=== PATIENT | female | born 1950 | race Caucasian/White ===

== ENCOUNTER → 2016-06-21 | Outpatient (CLI) | payer OTHER | LOC: FIMAGING 13:13 | DX: Z12.31 Encounter for screening mammogram for malignant neoplasm of breast (principal) | CPT/HCPCS: G0202 ==

== ENCOUNTER → 2017-03-27 | Outpatient (CLI) | payer SELFPAY | LOC: FIMAGING 08:52 | PROVIDERS: ATTEND Internal Medicine | DX: R94.6 Abnormal results of thyroid function studies (principal) | CPT/HCPCS: A9516 ==

== ENCOUNTER → 2017-07-29 | Outpatient (CLI) | payer OTHER | LOC: FIMAGING 13:11 | PROVIDERS: ATTEND Internal Medicine | DX: Z12.31 Encounter for screening mammogram for malignant neoplasm of breast (principal) ==

== ENCOUNTER 2017-11-18 08:10 | Emergency (ER) | payer OTHER ==
[2017-11-18] MEDS ORDERED: HYDROmorphONE/DILAUDID 2 MG/ML INJ IVP ONE ×2 (08:29→10:00)
[2017-11-18] MEDS ORDERED: ONDANSETRON 4 MG/2 ML VIAL IVP ONE (08:29)
[2017-11-18] MEDS ORDERED: NS 1,000 ML IV ONE (08:29)
--- NOTE | 2017-11-18 08:32 | EDPHY ---
H & P Stated Complaint: nausea for 3 weeks, abdominal pain starting today at 0400 Time Seen by Provider: 11/18/17 08:22 HPI/ROS: CHIEF COMPLAINT: Abdominal pain HISTORY OF PRESENT ILLNESS: The patient is a 67-year-old female who comes to the emergency department complaining of lower abdominal pain that began at 4:00 a.m.. She states she has had very mild nausea for the last few weeks but felt well yesterday. Today she woke up in pain. She has not had a fever but states that she had chills. She has never had pain like this before. No history of abdominal surgery. She states that her stool is slightly loose but not diarrhea and not bloody. No vomiting. No chest pain or shortness of breath. No back or flank pain. Pain is primarily in her lower abdomen and on the left side more than the right. No vaginal bleeding or discharge. No urinary complaints. REVIEW OF SYSTEMS: Constitutional: denies: chills, fever, recent illness, recent injury EENTM: denies: blurred vision, double vision, nose congestion Respiratory: denies: cough, shortness of breath Cardiac: denies: chest pain, irregular heart rate, lightheadedness, palpitations Gastrointestinal/Abdominal: See HPI Genitourinary: denies: dysuria, frequency, hematuria, pain Musculoskeletal: denies: joint pain, muscle pain Skin: denies: lesions, rash, jaundice, bruising Neurological: denies: headache, numbness, paresthesia, tingling, dizziness, weakness Hematologic/Lymphatic: denies: blood clots, easy bleeding, easy bruising Immunologic/allergic: denies: HIV/AIDS, transplant EXAM: GENERAL: Well-appearing, obese and in no acute distress. HEAD: Atraumatic, normocephalic. EYES: Pupils equal round and reactive to light, extraocular movements intact, sclera anicteric, conjunctiva are normal. ENT: TMs normal, nares patent, oropharynx clear without exudates. Moist mucous membranes. NECK: Normal range of motion, supple without lymphadenopathy or JVD. LUNGS: Breath sounds clear to auscultation bilaterally and equal. No wheezes rales or rhonchi. HEART: Regular rate and rhythm without murmurs, rubs or gallops. ABDOMEN: Large, Soft, nontender, normoactive bowel sounds. No guarding, no rebound. No masses appreciated. BACK: No CVA tenderness, no spinal tenderness, step-offs or deformities EXTREMITIES: Normal range of motion, no pitting or edema. No clubbing or cyanosis. NEUROLOGICAL: Cranial nerves II through XII grossly intact. Normal speech, normal gait. 5/5 strength, normal movement in all extremities, normal sensation PSYCH: Normal mood, normal affect. SKIN: Warm, dry, normal turgor, no visible rashes or lesions. Source: Patient Exam Limitations: No limitations - Personal History Current Tetanus/Diphtheria Vaccine: Yes Current Tetanus Diphtheria and Acellular Pertussis (TDAP): Yes Tetanus Vaccine Date: < 10 years - Medical/Surgical History Hx Asthma: No Hx Chronic Respiratory Disease: No Hx Diabetes: Yes Hx Cardiac Disease: Yes Hx Renal Disease: No Hx Cirrhosis: No Hx Alcoholism: No Hx HIV/AIDS: No Hx Splenectomy or Spleen Trauma: No Other PMH: HTN, hyperlipidemia, afib, DM, TIA, hyperthyroid - Family History Significant Family History: No pertinent family hx - Social History Smoking Status: Never smoked Alcohol Use: None Drug Use: None Constitutional: Initial Vital Signs Temperature (C) 36.3 C 11/18/17 08:16 Heart Rate 71 11/18/17 08:16 Respiratory Rate 18 11/18/17 08:16 Blood Pressure 141/88 H 11/18/17 08:16 O2 Sat (%) 96 11/18/17 08:16 O2 Delivery Mode Room Air Allergies/Adverse Reactions: No Known Allergies Allergy (Verified 11/18/17 08:14) Home Medications: Medication Instructions Recorded METOPROLOL TARTRATE PO DAILY 08/17/10 Hydrocodone/APAP 5/325 [Geary 1 - 2 tab PO Q4H PRN #10 tab 11/18/17 5/325 (RX)] Ondansetron Odt [Zofran Odt 4 mg 4 mg PO Q4 PRN #20 tab 11/18/17 (RX)] Statin 11/18/17 levOFLOXACIN [levAQUIN] 750 mg PO DAILY #10 tab 11/18/17 metFORMIN HCL 11/18/17 metroNIDAZOLE [Flagyl] 500 mg PO BID #20 tab 11/18/17 Medical Decision Making - Diagnostics Imaging: Discussed imaging studies w/ automatic buffer Radiologist ED Course/Re-evaluation: 10:00 a.m. We discussed the CT and lab results. The patient would prefer going home to admission. I will start her antibiotics here in the discussed taking them at home as well as pain control and nausea medications. We discussed indications for returning. Differential Diagnosis: Partial list of the Differential diagnosis considered include but were not limited to; diverticulitis, kidney stone, urinary tract infection and although unlikely based on the history and physical exam, I also considered aneurysm, dissection. I discussed these differential diagnoses and the plan with the patient as well as the usual and expected course. The patient understands that the diagnosis is provisional and that in medicine we are not always correct and that further workup is often warranted. Usual and customary warnings were given. All of the patient's questions were answered. The patient was instructed to return to the emergency department should the symptoms at all worsen or return, otherwise to followup with the physician as we discussed. - Data Points Laboratory Results: Laboratory Results 11/18/17 08:35 11/18/17 08:35 Medications Given: Discontinued Medications Hydromorphone HCl (Dilaudid) 0.5 mg IVP EDNOW ONE Stop: 11/18/17 08:30 Last Admin: 11/18/17 08:42 Dose: 0.5 mg Hydromorphone HCl (Dilaudid) 0.5 mg IVP EDNOW ONE Stop: 11/18/17 10:01 Last Admin: 11/18/17 10:27 Dose: 0.5 mg Sodium Chloride (Ns) 1,000 mls @ 0 mls/hr IV EDNOW ONE; Wide Open PRN Reason: Protocol Stop: 11/18/17 08:30 Last Admin: 11/18/17 08:43 Dose: 1,000 mls Levofloxacin/Dextrose (Levaquin 750 Mg (Premix)) 150 mls @ 100 mls/hr IV EDNOW ONE PRN Reason: Protocol Stop: 11/18/17 11:28 Last Admin: 11/18/17 10:20 Dose: 150 mls Metronidazole/Sodium Chloride (Flagyl 500 Mg (Premix)) 100 mls @ 100 mls/hr IV EDNOW ONE PRN Reason: Protocol Stop: 11/18/17 10:58 Last Admin: 11/18/17 12:00 Dose: 100 mls Ondansetron HCl (Zofran) 4 mg IVP EDNOW ONE Stop: 11/18/17 08:30 Last Admin: 11/18/17 08:42 Dose: 4 mg Departure - Departure Disposition: Home, Routine, Self-Care Clinical Impression: Diverticulitis large intestine Qualifiers: Diverticulitis bleeding: without bleeding Diverticulitis complication: without perforation or abscess Qualified Code(s): K57.32 - Diverticulitis of large intestine without perforation or abscess without bleeding Condition: Fair Instructions: Hydrocodone/Acetaminophen (By mouth), Metronidazole (By mouth), Ondansetron (By mouth), Levofloxacin (By mouth), Diverticulitis (ED) Referrals: Lenora Davis MD [Primary Care Provider] - As per Instructions Saul Chase MD [Medical Doctor] - As per Instructions Prescriptions: Hydrocodone/APAP 5/325 [Geary 5/325 (RX)] 1 - 2 tab PO Q4H PRN #10 tab PRN Reason: Pain, Moderate levOFLOXACIN [levAQUIN] 750 mg PO DAILY #10 tab metroNIDAZOLE [Flagyl] 500 mg PO BID #20 tab Ondansetron Odt [Zofran Odt 4 mg (RX)] 4 mg PO Q4 PRN #20 tab PRN Reason: Nausea & Vomiting
[2017-11-18 08:46] LABS: PLATELET COUNT 272 10^3/uL (150-400)
[2017-11-18] MEDS ORDERED: IOPAMIDOL (ISOVUE-300) 100 ML BTL ONE (09:14)
[2017-11-18 13:11] VITALS: BP 134/69
== END 2017-11-18 13:10 | disposition home or self-care (01) ==
LOC: SUPCPDRO 08:10
DX: K57.32 Diverticulitis of large intestine without perforation or abscess without bleeding (principal); E86.9 Volume depletion, unspecified; I10 Essential (primary) hypertension; E11.9 Type 2 diabetes mellitus without complications; Z79.84 Long term (current) use of oral hypoglycemic drugs
CPT/HCPCS: 74177; 96361; 96365; 96367; 96375; 96376; 99285; J1170; J1956; J2405; Q9967

== ENCOUNTER 2018-05-02 21:49 | Inpatient (IN) | payer OTHER ==
--- NOTE | 2018-05-02 21:56 | EDPHY ---
H & P Time Seen by Provider: 05/02/18 21:56 HPI/ROS: HPI CHIEF COMPLAINT: Lower quadrant abdominal pain getting worse. HISTORY OF PRESENT ILLNESS: 67-year-old female presents emergency room left lower quadrant abdominal pain. This been a present issue for the past 10 days lays visualize diagnosed with diverticulitis by her primary care doctor and has been on Augmentin. She presents emergency room with worsening left lower quadrant abdominal pain over the last 24 hr. Decreased appetite but no vomiting no diarrhea no bloody stools. Denies fever denies chest pain or his of breath. Past Medical History: Diabetes and diverticulitis Past Surgical History: No abdominal surgery Social History: Denies drugs, tobacco. Or alcohol. Family History: Noncontributory ROS REVIEW OF SYSTEMS: 10 Systems were reviewed and negative with the exception of the elements mentioned in the history of present illness. Exam Constitutional triage nursing summary reviewed, vital signs reviewed, awake/ alert. Eyes normal conjunctivae and sclera, EOMI, PERRLA. HENT normal inspection, atraumatic, moist mucus membranes, no epistaxis, neck supple/ no meningismus, no raccoon eyes. Respiratory clear to auscultation bilaterally, normal breath sounds, no respiratory distress, no wheezing. Cardiovascular rate normal, regular rhythm, no murmur, no edema, distal pulses normal. Gastrointestinal mild tender palpation left lower quadrant, no rebound, no guarding, normal bowel sounds, no distension, no pulsatile mass. Genitourinary no CVA tenderness. Musculoskeletal no midline vertebral tenderness, full range of motion, no calf swelling, no tenderness of extremities, no meningismus, good pulses, neurovascularly intact. Skin pink, warm, & dry, no rash, skin atraumatic. Neurologic awake, alert and oriented x 3, AAOx3, moves all 4 extremities equally, motor intact, sensory intact, CN II-XII intact, normal cerebellar, normal vision, normal speech. Psychiatric normal mood/affect. Heme/Lymph/Immune no lymphadenopathy. Differential Diagnosis: Differential diagnosis includes but is not limited to and in no particular order: Bowel obstruction, appendicitis, gallbladder disease, diverticulitis, colitis, enteritis, perforated viscus, gastritis, GERD , esophagitis, urinary tract infection, pyelonephritis, kidney stones Medical Decision Making: Plan for this patient IV establishment IV fluid bolus CT scan abdomen pelvis with IV contrast, basic blood work. Re-evaluation: CT scan abdomen pelvis with IV contrast shows acute diverticulitis. No perforation or abscess. 2335: LONG DISCUSSION WITH THE PATIENT SHE WOULD AGREE FOR ADMISSION. Plan for admission for acute diverticulitis. IV Cipro Flagyl ordered. Admitted to the medicine service Dr. Gemini Spencer. Patient has uncomplicated diverticulitis on CT scan has been on Augmentin for the last. Plan for admission. Source: Patient - Personal History Tetanus Vaccine Date: < 10 years - Medical/Surgical History Hx Asthma: No Hx Chronic Respiratory Disease: No Hx Diabetes: Yes Hx Cardiac Disease: Yes Hx Renal Disease: No Hx Cirrhosis: No Hx Alcoholism: No Hx HIV/AIDS: No Hx Splenectomy or Spleen Trauma: No Other PMH: HTN, hyperlipidemia, afib, DM, TIA, hyperthyroid - Social History Smoking Status: Never smoked Constitutional: Initial Vital Signs Temperature (C) 37.0 C 05/02/18 21:56 Heart Rate 76 05/02/18 21:56 Respiratory Rate 17 05/02/18 21:56 Blood Pressure 152/85 H 05/02/18 21:56 O2 Sat (%) 95 05/02/18 21:56 O2 Delivery Mode Room Air Allergies/Adverse Reactions: fluoxetine Allergy (Verified 05/03/18 10:56) metaxalone [From Skelaxin] Allergy (Verified 05/03/18 10:56) niacin Allergy (Verified 05/03/18 10:54) Home Medications: Medication Instructions Recorded Metoprolol Succinate [Toprol Xl] 25 mg PO DAILY 08/17/10 Atorvastatin Calcium [Lipitor] 40 mg PO DAILY 11/18/17 metFORMIN HCL [Glucophage 500 mg 1,000 mg PO BIDMEAL 11/18/17 (*)] Aspirin [Aspirin 81mg (*)] 81 mg PO DAILY 05/03/18 Cholecalciferol Vit D3 [Vitamin D3 2,000 units PO DAILY 05/03/18 2000 units tab (OTC)] Herbals/Supplements -Info Only 1 ea PO DAILY 05/03/18 LORazepam [Ativan (*)] 0.5 mg PO HS PRN 05/03/18 Losartan Potassium [Cozaar 50 mg 100 mg PO DAILY 05/03/18 (*)] Magnesium Oxide [Magnesium Oxide 400 mg PO DAILY 05/03/18 400 mg (*)] [place]-3 Fatty Acids [Fish Oil 1000 2,000 mg PO DAILY 05/03/18 mg (*)] Ondansetron Odt [Zofran Odt 4 mg 4 mg PO BID PRN 05/03/18 (RX)] buPROPion XL [Wellbutrin Xl] 150 mg PO DAILY 05/03/18 Medical Decision Making - Data Points Laboratory Results: Laboratory Results 05/02/18 22:07 05/02/18 22:07 Medications Given: Atorvastatin Calcium (Lipitor) 40 mg PO DAILY [facility] Stop: 10/30/18 20:59 Last Admin: 05/03/18 20:16 Dose: 40 mg Bupropion HCl (Wellbutrin Xl) 150 mg PO HS [facility] Stop: 10/30/18 11:14 Last Admin: 05/03/18 20:17 Dose: Not Given Cholecalciferol (Vitamin D) 2,000 units PO DAILY [facility] Stop: 10/30/18 11:14 Last Admin: 05/03/18 11:56 Dose: 2,000 units Ciprofloxacin/Dextrose (Cipro 400 Mg (Premix)) 200 mls @ 200 mls/hr IV Q12H [facility] PRN Reason: Protocol Stop: 06/02/18 00:59 Last Admin: 05/04/18 01:12 Dose: 200 mls Metronidazole/Sodium Chloride (Flagyl 500 Mg (Premix)) 100 mls @ 100 mls/hr IV Q6HRS [facility] PRN Reason: Protocol Stop: 06/02/18 05:59 Last Admin: 05/03/18 23:38 Dose: 100 mls Losartan Potassium (Cozaar) 100 mg PO DAILY [facility] Stop: 10/30/18 11:14 Last Admin: 05/03/18 11:56 Dose: Not Given Metformin HCl (Glucophage) 1,000 mg PO BIDMEAL [facility] Stop: 10/30/18 17:59 Last Admin: 05/03/18 17:30 Dose: 1,000 mg Metoprolol Succinate (Toprol Xl) 25 mg PO DAILY [facility] Stop: 10/30/18 11:14 Last Admin: 05/03/18 11:57 Dose: Not Given [id number] Ethyl Esters (Fish Oil) 2,000 mg PO DAILY [facility] Stop: 10/30/18 11:14 Last Admin: 05/03/18 11:58 Dose: 2,000 mg Senna/Docusate Sodium (Senokot-S) 1 - 2 tab PO BID [facility] PRN Reason: Protocol Stop: 10/30/18 08:59 Last Admin: 05/03/18 20:16 Dose: 2 tab Discontinued Medications Bupropion HCl (Wellbutrin Xl) 150 mg PO DAILY [facility] Stop: 10/30/18 11:14 Last Admin: 05/03/18 11:15 Dose: Not Given Hydromorphone HCl (Dilaudid) 0.5 mg IVP EDNOW ONE Stop: 05/02/18 22:12 Last Admin: 05/02/18 22:19 Dose: Not Given Sodium Chloride (Ns) 1,000 mls @ 0 mls/hr IV EDNOW ONE; Wide Open PRN Reason: Protocol Stop: 05/02/18 22:06 Last Admin: 05/02/18 22:11 Dose: 1,000 mls Ciprofloxacin/Dextrose (Cipro 200 Mg (Premix)) 100 mls @ 100 mls/hr IV EDNOW ONE PRN Reason: Protocol Stop: 05/03/18 00:35 Last Admin: 05/03/18 01:29 Dose: Not Given Metronidazole/Sodium Chloride (Flagyl 500 Mg (Premix)) 100 mls @ 100 mls/hr IV EDNOW ONE PRN Reason: Protocol Stop: 05/03/18 00:35 Last Admin: 05/02/18 23:52 Dose: 100 mls Sodium Chloride (Ns) 1,000 mls @ 0 mls/hr IV ONCE ONE PRN Reason: Wide Open Stop: 05/02/18 23:42 Last Admin: 05/02/18 23:53 Dose: 1,000 mls Promethazine HCl (Phenergan) 6.25 mg IVP ONCE ONE Stop: 05/02/18 22:12 Last Admin: 05/02/18 22:19 Dose: Not Given Departure - Departure Disposition: [facility] Acute Clinical Impression: Diverticulitis large intestine Qualifiers: Diverticulitis bleeding: without bleeding Diverticulitis complication: without perforation or abscess Qualified Code(s): K57.32 - Diverticulitis of large intestine without perforation or abscess without bleeding Condition: Fair
[2018-05-02] MEDS ORDERED: NS 1,000 ML IV ONE ×2 (22:05→23:41)
[2018-05-02] MEDS ORDERED: HYDROmorphONE/DILAUDID 2 MG/ML INJ IVP ONE (22:11)
[2018-05-02] MEDS ORDERED: PROMETHAZINE HCL 25 MG/ML INJ IVP ONE (22:11)
[2018-05-02 22:20] LABS: PLATELET COUNT 319 10^3/uL (150-400)
[2018-05-02 22:29] LABS: INR 0.97 (0.83-1.16); PROTIME(PATIENT) 13.1 SEC (12.0-15.0)
[2018-05-02] MEDS ORDERED: IOPAMIDOL (ISOVUE-300) 100 ML BTL ONE (22:40)
[2018-05-03] MEDS ORDERED: BISACODYL 10 MG SUPP PR PRN (00:55)
[2018-05-03] MEDS ORDERED: ONDANSETRON 4 MG/2 ML VIAL IVP PRN (00:55)
[2018-05-03] MEDS ORDERED: POLYETHYLENE GLYCOL 3350 17 GM PKT PO PRN (00:55)
[2018-05-03] MEDS ORDERED: LACTULOSE 20 GM/30 ML UDCUP PO PRN (00:55)
[2018-05-03] MEDS ORDERED: ONDANSETRON DISINTEGRATING 4 MG TAB PO PRN (00:55)
[2018-05-03] MEDS ORDERED: ACETAMINOPHEN 325 MG TAB PO PRN (00:55)
[2018-05-03] MEDS ORDERED: MAGNESIUM HYDROXIDE 30 ML UDCUP PO PRN (00:55)
--- NOTE | 2018-05-03 01:13 | SOAPPROG ---
SOAP Progress Note Assessment/Plan: Assessment: Plan: 05/03/18 01:17 Diverticulitis: not doing well on Augmentin as outpatient, with ongoing pain. Afebrile, WBC with minimal elevation. Will switch to IV antibiotics, Cipro and flagyl. Hopefully she with feel better soon and can be switched to oral regimen. I don't see need for surgical consult at this point. Diabetes mellitus type 2: on metformin and will continue Hypertension: on losartan, will continue Hx atrial fibrillation: no recurrence for many years. Continue metoprolol CAD: continue fish oil, aspirin, CoQ10, aged garlic Hyperlipidemia: on atorvastatin Depression/Anxiety: on Wellbutrin XL DVT prophylaxis: sequential compression stockings Dispo: admit to obs for now, though may need to change to inpatient status Subjective: 67 yo woman with hx of diverticulitis initially was seen in our office on . Prior to that visit, she'd been having nausea, decreased appetite, and lower abdominal pain. Abdominal pain worsened and she came to the office. CT abdomen and pelvis with contrast showed mild diverticulitis in two spots in the sigmoid colon. She was started on Augmentin 500mg TID. She subsequently went to [place] for the holidays. She modified her diet while there but didn't improve significantly. Yesterday her sx became worse and she and her drove back to [place] today and presented to the ED due to worsening pain. In the ED, CT abd/pelvis again shows diverticulitis without significant worsening from her previous CT, based on the report. No abscess, free air. WBC is minimally elevated. She is afebrile, BP stable. She is being admitted as she appears to have failed outpatient rx. Of note, she has had a surgical consult with Dr. Mathur in October 2017 following her previous episode of diverticulitis. Objective: Vital Signs Temp Pulse Resp BP Pulse Ox 36.4 C 68 18 135/79 H 96 05/03/18 00:29 05/03/18 00:29 05/03/18 00:29 05/03/18 00:29 05/03/18 00:29 05/01/18 05/02/18 05/03/18 05:59 05:59 05:59 Intake Total 1000 Balance 1000 PT 13.1 SEC (12.0-15.0) 05/02/18 22:07 INR 0.97 (0.83-1.16) 05/02/18 22:07 General: alert, oriented, well-appearing, mild discomfort HEENT: NC, AT. PERRL, EOMI Neck: no masses, adenopathy. No thyromegaly, thyroid tenderness Lungs: clear bilaterally. No wheezes, rales Cardiovascular: RRR no murmur Abdomen: positive bowel sounds, soft. Mild L sided tenderness. No hepatosplenomegaly, masses Extremities: no cyanosis, edema Skin: no rashes Musculoskeletal: no swelling, erythema Neurologic: alert, Mateo Psychiatric: pleasant, normal affect, no agitation ICD10 Worksheet Patient Problems: Problems Problem Status Onset Diverticulitis large intestine Acute
[2018-05-03] MEDS: CIPROFLOXACIN 200 MG/DEXTROSE 100 ML IV ONE ×2 (01:22→01:29)
[2018-05-03] MEDS: CIPROFLOXACIN 400 MG/DEXTROSE 200 ML IV SCH ×2 (01:29→13:01)
--- NOTE | 2018-05-03 03:36 | GHP ---
DATE OF ADMISSION: 05/02/2018 HISTORY OF PRESENT ILLNESS: The patient is a 67-year-old woman with a history of diabetes as well as diverticulitis who was initially seen in our office on . Prior to that visit, she had been having nausea, decreased appetite, and lower abdominal pain. Her abdominal pain worsened and she came into the office on [place]. CT of the abdomen and pelvis with contrast showed diverticulitis in 2 spots in the sigmoid colon, but there was no evidence of abscess or perforation. She was started on Augmentin 500 mg t.i.d. She subsequently went to [place] for the holidays. She modified her diet some while she was there, but did not improve significantly. Yesterday, her symptoms became much worse and she and her drove back to [place] today and presented to the emergency department due to worsening pain. In the emergency department, CT of the abdomen and pelvis again showed diverticulitis without significant worsening from her previous CT based on the report. There was no direct comparison. There was no abscess or free air. White blood cell count is minimally elevated. She is afebrile with a stable blood pressure. She is being admitted as she appears to have failed outpatient Rx. Of note, she has had a surgical consult in the past with Dr. Mathur in October 2017 following her previous episode of diverticulitis. PAST MEDICAL HISTORY: Melanoma of the right lower abdomen, anxiety, depression , asthma, isolated paroxysmal atrial fibrillation, hypertension, hyperlipidemia , type 2 diabetes, hyperthyroidism, hypothyroidism, coronary artery disease, diverticulitis. MEDICATIONS: Zofran 4 mg twice daily as needed for nausea, metoprolol succinate ER 25 mg daily, atorvastatin 40 mg daily, losartan 100 mg daily, metformin 1000 mg b.i.d., fish oil 1200 mg 2 caps daily, aspirin 81 mg daily, vitamin D 2000 international units daily, Co Q10 200 mg daily, Protandim 1 tab daily, magnesium 500 mg daily, Probiotic daily, Turmeric 500 mg once daily, aged garlic extract 600 mg twice a day, Lorazepam 0.5 mg at bedtime as needed, Wellbutrin XL 150 mg daily. ALLERGIES: Niacin, metaxalone, and fluoxetine. SURGICAL HISTORY: Breast biopsy 2005, bilateral carpal tunnel surgery 1996, tailbone cyst 1969, right knee arthroscopy. FAMILY HISTORY: Her father of lung cancer and had a history of colon polyps. Her mother has hypertension and atrial fibrillation. She has a brother who is in poor health with alcohol problems, a sister with paroxysmal atrial fibrillation, diabetes, and obesity. SOCIAL HISTORY: The patient is a nonsmoker and nondrinker. She has 3 children and 6 grandchildren. She exercises regularly. She is . REVIEW OF SYSTEMS: GENERAL: No fever or chills. She does note night sweats on occasion. HEENT: No rhinitis or sore throat. RESPIRATORY: No cough, shortness of breath, or wheeze. CARDIOVASCULAR: No chest pain or irregular rhythms. GI: Nausea and abdominal pain as noted per HPI. No diarrhea or blood in stools. No vomiting. Appetite is diminished. : No dysuria or hematuria. NEUROLOGIC: No headache. No lethargy or mental status change. PHYSICAL EXAMINATION: VITAL SIGNS: Blood pressure 135/79, heart rate 68, respiratory rate 18, O2 saturation 96% on room air, temperature 36.4. GENERAL: She is alert and oriented, well-appearing, in mild discomfort. HEENT: Normocephalic, atraumatic. Pupils are equal, round, and reactive to light. Extraocular movements are intact. NECK: Supple without masses or adenopathy. No thyromegaly or thyroid tenderness. LUNGS: Clear bilaterally. No wheezes or rales. CARDIOVASCULAR: Regular rate and rhythm without murmur. ABDOMEN: Normal bowel sounds and soft. Mild left-sided tenderness. No hepatosplenomegaly or masses. EXTREMITIES: Without cyanosis or edema. SKIN: No rashes. MUSCULOSKELETAL: No swelling or erythema. NEUROLOGIC: She is alert and oriented moving all extremities. PSYCHIATRIC: Pleasant, normal affect. No agitation. ASSESSMENT AND PLAN: 1. Diverticulitis, not doing well on Augmentin as outpatient with ongoing pain. She is afebrile and white blood cell count shows only minimal elevation. Will switch to IV antibiotics Cipro and Flagyl. Hopefully, she will feel better soon and can be switched to oral regimen. I do not see a need for surgical consult at this point. 2. Diabetes mellitus type 2, on metformin and will continue. 3. Hypertension, on losartan and will continue. 4. History of atrial fibrillation. No recurrence for many years. Continue metoprolol. 5. Coronary artery disease. Continue fish oil, aspirin, Co Q10, and aged garlic. 6. Hyperlipidemia, on atorvastatin. 7. Depression and anxiety, on Wellbutrin XL. 8. Deep venous thrombosis prophylaxis. Sequential compression stockings. DISPOSITION: Will admit to OBs for now, although may need to change to inpatient status. /[id number]/MODL MTDD
[2018-05-03 05:20] LABS: PLATELET COUNT 233 10^3/uL (150-400)
[2018-05-03] MEDS: SENNOSIDES/DOCUSATE SODIUM TAB PO SCH ×2 (10:29→20:16)
[2018-05-03] MEDS ORDERED: LORazepam 0.5 MG TAB PO PRN (11:04)
--- NOTE | 2018-05-03 11:14 | ASMTCMCOM ---
CM Note CM Note Notes: Pt in for acute diverticulitis, on IV antibiotics now. Pt resides with spouse. No therapies ordered. Pt likely will be able to switch to PO antibiotics. CM to follow for d/c needs. Date Signed: 05/03/2018 11:13 AM Electronically Signed By:SCOTT Berumen
[2018-05-03] MEDS: buPROPion XL 150 MG TAB PO SCH ×2 (11:15→11:56)
--- NOTE | 2018-05-03 11:24 | SOAPPROG ---
SOAP Progress Note Assessment/Plan: Assessment: Plan: 05/03/18 01:17 Diverticulitis: not doing well on Augmentin as outpatient, with ongoing pain. Afebrile, WBC with minimal elevation. Will switch to IV antibiotics, Cipro and flagyl. Hopefully she with feel better soon and can be switched to oral regimen. I don't see need for surgical consult at this point. Diabetes mellitus type 2: on metformin and will continue Hypertension: on losartan, will continue Hx atrial fibrillation: no recurrence for many years. Continue metoprolol CAD: continue fish oil, aspirin, CoQ10, aged garlic Hyperlipidemia: on atorvastatin Depression/Anxiety: on Wellbutrin XL DVT prophylaxis: sequential compression stockings Dispo: admit to obs for now, though may need to change to inpatient status 05/03/18 11:24 Diverticulitis: will continue with IV antibx for now. I would like to see a definite improvement in discomfort before switching to PO antibx. WBC normal today. Diabetes: GFR >60 this morning, so will continue metformin. Did take dose last night as well. Will recheck BMP tomorrow as well. Hypertension: BP low this morning, which she states is common for her on her BP meds. Remainder of plan as noted above. Encouraged her ambulate as much as she is comfortable with. Subjective: Feeling about the same this morning, with persistent abdominal pain. Otherwise, no complaints. Is getting up and walking some. Objective: Vital Signs Temp Pulse Resp BP Pulse Ox 36.7 C 55 L 12 99/60 L 94 05/03/18 09:00 05/03/18 09:00 05/03/18 09:00 05/03/18 09:00 05/03/18 09:00 Laboratory Results 05/03/18 04:38 05/03/18 04:38 05/02/18 05/03/18 05/04/18 05:59 05:59 05:59 Intake Total 1000 Balance 1000 PT 13.1 SEC (12.0-15.0) 05/02/18 22:07 INR 0.97 (0.83-1.16) 05/02/18 22:07 General: awake, alert, NAD Lungs: clear bilaterally Cardiovascular: RRR no murmur Abdomen: +bowel sounds, soft. Mild tenderness L side, as before Extremities: no edema ICD10 Worksheet Patient Problems: Problems Problem Status Onset Diverticulitis large intestine Acute
[2018-05-03] MEDS ORDERED: Herbals/Supplements -Info Only PO SCH (11:30)
[2018-05-03] MEDS ORDERED: ASPIRIN 81 MG CHEWABLE TAB ONE (11:55)
[2018-05-03] MEDS: CHOLECALCIFEROL VIT D3 2,000 UNITS TAB/CAP PO SCH (11:56)
[2018-05-03] MEDS: LOSARTAN POTASSIUM 50 MG TAB PO SCH (11:56)
[2018-05-03] MEDS: METOPROLOL SUCCINATE XR 25 MG TAB PO SCH (11:57)
[2018-05-03] MEDS: OMEGA-3 FATTY ACIDS 1,000 MG CAP PO SCH (11:58)
[2018-05-03] MEDS: metFORMIN HCL 500 MG TAB PO SCH (17:30)
[2018-05-03] MEDS: ATORVASTATIN CALCIUM 40 MG TAB PO SCH (20:16)
[2018-05-03] MEDS ORDERED: buPROPion XL 150 MG TAB PO SCH (21:00)
[2018-05-04] MEDS: CIPROFLOXACIN 400 MG/DEXTROSE 200 ML IV SCH (01:12)
[2018-05-04 05:28] LABS: PLATELET COUNT 250 10^3/uL (150-400)
[2018-05-04] MEDS ORDERED: ASPIRIN 81 MG CHEWABLE TAB PO SCH ×2 (09:00→21:00)
[2018-05-04] MEDS ORDERED: MAGNESIUM OXIDE 400 MG TAB PO SCH ×2 (09:00→21:00)
[2018-05-04] MEDS: metFORMIN HCL 500 MG TAB PO SCH ×2 (09:14→18:19)
[2018-05-04] MEDS: CHOLECALCIFEROL VIT D3 2,000 UNITS TAB/CAP PO SCH (09:14)
[2018-05-04] MEDS: OMEGA-3 FATTY ACIDS 1,000 MG CAP PO SCH (09:18)
[2018-05-04] MEDS: SENNOSIDES/DOCUSATE SODIUM TAB PO SCH ×2 (09:19→20:00)
[2018-05-04] MEDS: ATORVASTATIN CALCIUM 40 MG TAB PO SCH (10:15)
[2018-05-04] MEDS: METOPROLOL SUCCINATE XR 25 MG TAB PO SCH (10:16)
[2018-05-04] MEDS: LOSARTAN POTASSIUM 50 MG TAB PO SCH (10:16)
[2018-05-04] MEDS: buPROPion XL 150 MG TAB PO SCH (10:36)
--- NOTE | 2018-05-04 12:39 | SOAPPROG ---
SOAP Progress Note Assessment/Plan: Assessment: Plan: 05/03/18 01:17 Diverticulitis: not doing well on Augmentin as outpatient, with ongoing pain. Afebrile, WBC with minimal elevation. Will switch to IV antibiotics, Cipro and flagyl. Hopefully she with feel better soon and can be switched to oral regimen. I don't see need for surgical consult at this point. Diabetes mellitus type 2: on metformin and will continue Hypertension: on losartan, will continue Hx atrial fibrillation: no recurrence for many years. Continue metoprolol CAD: continue fish oil, aspirin, CoQ10, aged garlic Hyperlipidemia: on atorvastatin Depression/Anxiety: on Wellbutrin XL DVT prophylaxis: sequential compression stockings Dispo: admit to obs for now, though may need to change to inpatient status 05/03/18 11:24 Diverticulitis: will continue with IV antibx for now. I would like to see a definite improvement in discomfort before switching to PO antibx. WBC normal today. Diabetes: GFR >60 this morning, so will continue metformin. Did take dose last night as well. Will recheck BMP tomorrow as well. Hypertension: BP low this morning, which she states is common for her on her BP meds. Remainder of plan as noted above. Encouraged her ambulate as much as she is comfortable with. 05/04/18 12:36 Diverticulitis: will switch to PO antibiotics and see how she does today. Has had problems with diarrhea and antibiotics in the past, as well as anxiety that may have be due to cipro. So far has done well with IV antibiotics. Diabetes: on metformin. Creatinine stable following IV contrast. Remainder of plan as noted above. Dispo: will change to inpt status, as I would like to see that she tolerates PO antibx before discharge, and that sx continue to improve, given that she didn't do well previously with oral antibx. 05/04/18 12:41 Subjective: Abdominal pain is better today. Feels mildly nauseated. Eating. Had BM, a little loose but no diarrhea. Objective: Vital Signs Temp Pulse Resp BP Pulse Ox 36.8 C 53 L 16 109/62 94 05/04/18 07:25 05/04/18 07:25 05/04/18 07:25 05/04/18 07:25 05/04/18 07:25 Laboratory Results 05/04/18 04:34 05/04/18 04:34 05/03/18 05/04/18 05/05/18 05:59 05:59 05:59 Intake Total 1000 550 Balance 1000 550 PT 13.1 SEC (12.0-15.0) 05/02/18 22:07 INR 0.97 (0.83-1.16) 05/02/18 22:07 General: awake, alert, NAD Lungs: clear CV: RRR, no murmur Abdomen: +bowel sounds, soft, mildly tender Extremities: no edema ICD10 Worksheet Patient Problems: Problems Problem Status Onset Diverticulitis large intestine Acute
[2018-05-04] MEDS: metroNIDAZOLE 500 MG TAB PO SCH ×3 (12:55→23:41)
--- NOTE | 2018-05-04 14:33 | PDMN ---
Medical Necessity Medical necessity: [facility] M150 Diverticulitis, Acute, A-2days: 67 yo w/ acute diverticulitis failing outpt PO antibx therapy. Pt started on IV antibx but requiring additional MN for ongoing monitoring and treatment w/ wean to PO antibx. Changing to IP status to ensure pt nicholas PO antibx before d/c as she has hx of intolerance/diarrhea w/ PO requiring additional MN. Hx melanoma, DM, HTN, HLD, CAD. Change to IP status 05/04/18@1243 per MD order.
[2018-05-04] MEDS: CIPROFLOXACIN 500 MG TAB PO SCH (19:56)
[2018-05-04] MEDS ORDERED: ATORVASTATIN CALCIUM 40 MG TAB PO SCH (21:00)
[2018-05-04] MEDS ORDERED: LOSARTAN POTASSIUM 50 MG TAB PO SCH (21:00)
[2018-05-04] MEDS ORDERED: METOPROLOL SUCCINATE XR 25 MG TAB PO SCH (21:00)
[2018-05-05] MEDS: metroNIDAZOLE 500 MG TAB PO SCH ×2 (05:23→11:49)
--- NOTE | 2018-05-05 08:33 | PDIAF ---
- Diagnosis Diagnosis: Diverticulitis Code Status: Full Code - Medication Management Discharge Medications: electronically signed and located in the Home Medication List. - Orders Diet Recommendation: no restrictions on diet Diet Texture: Regular Texture Diet - Follow Up Care Current Providers and Referrals: Lenora Davis MD [Primary Care Provider] - As per Instructions
--- NOTE | 2018-05-05 08:36 | SOAPPROG ---
SOAP Progress Note Assessment/Plan: Assessment: 67 yo female admitted for diverticulitis. Plan: Diverticulitis- No abd pain, fevers. Feeling well, eating. Will d/c home on PO flagyl and cipro x 7 days. F/u in office later this week. Diabetes- creat stable following contrast, continue metformin Hypertension- BP well controlled, continue current regimen Dispo- D/c home. F/u in office later this week 05/05/18 08:33 Subjective: Ocee is resting in bed, slept well, denies abd pain, fevers. Feels ready to go home. Objective: Vital Signs Temp Pulse Resp BP Pulse Ox 36.6 C 64 16 136/71 H 94 05/05/18 05:26 05/05/18 05:26 05/05/18 05:26 05/05/18 05:26 05/05/18 05:26 05/04/18 05/05/18 05/06/18 05:59 05:59 05:59 Intake Total 500 Balance 500 PT 13.1 SEC (12.0-15.0) 05/02/18 22:07 INR 0.97 (0.83-1.16) 05/02/18 22:07 Gen- alert, oriented Head- normocephalic, atraumatic Resp- LCTAB, no wheezing, rhonchi, rales CV- S1S2, RRR, no murmurs, rubs, gallops Abd- SNT, nondistended, + bs Skin- warm and dry ICD10 Worksheet Patient Problems: Problems Problem Status Onset Diverticulitis large intestine Acute
[2018-05-05 08:54] VITALS: BP 125/70
[2018-05-05] MEDS: SENNOSIDES/DOCUSATE SODIUM TAB PO SCH (09:10)
[2018-05-05] MEDS: OMEGA-3 FATTY ACIDS 1,000 MG CAP PO SCH (09:10)
--- NOTE | 2018-05-05 09:16 | ASMTLACE ---
LACE Length of stay for Answers: Less than 1 day current admission Comorbidities - select Answers: Coronary Artery Disease all that apply Diabetes (uncontrolled or controlled) Other Notes: HTN, # of Emergency department Answers: 1-2 visits in the last 6 months Social determinants Answers: Mental health diagnosis (anxiety, depression, pers onality disorders, etc.) Score: 8 Date Signed: 05/05/2018 09:16 AM Electronically Signed By:Radha Lal RN
--- NOTE | 2018-05-05 09:18 | ASMTDCNOTE ---
Case Management Discharge Discharge Order Complete? Answers: Yes Patient to Obtain Answers: via Family Medications Transportation Arranged Answers: Family/Friends Family Notified Answers: Yes Discharge Comments Notes: Patient to dc to home without needs. F/U with PCP planned. Date Signed: 05/05/2018 09:18 AM Electronically Signed By:Radha Lal RN
[2018-05-05] MEDS: CIPROFLOXACIN 500 MG TAB PO SCH (09:26)
[2018-05-05] MEDS: metFORMIN HCL 500 MG TAB PO SCH (09:26)
[2018-05-05] MEDS: buPROPion XL 150 MG TAB PO SCH (09:27)
[2018-05-05] MEDS: CHOLECALCIFEROL VIT D3 2,000 UNITS TAB/CAP PO SCH (09:27)
--- NOTE | 2018-05-05 09:49 | GDS ---
PRIMARY DIAGNOSIS: Diverticulitis. HISTORY OF PRESENT ILLNESS: This is a 67-year-old female who was admitted from home with nausea, dec reased appetite, and lower abdominal pain. She was seen in the office on 04/21 with these symptoms, which were much more mild. CT of the abdomen showed diverticulitis in 2 spots, but there was not any evidence of abscess or perforation. She was started on Augmentin 500 t.i.d. She then traveled to [facility] for the holidays, changed her diet a little bit, but her pain did not improve much. She came ba ck to [place] and presented to the emergency department because of the worsened abdominal pain. CT on arrival to the emergency department showed diverticulitis without significant worsening compared t o the previous CT scan. White count was minimally elevated. She was afebrile, and vitals were stabl e. She was started on IV Cipro and Flagyl and has tolerated that well thus far. She will be dischar ged on p.o. Cipro and Flagyl with close followup in the office. Of note, during her previous diverti culitis flares, she has had trouble with tolerating oral antibiotics. She has experienced significan t diarrhea with them in the past, though she seems to be tolerating them okay at this time so far. S he also has a history of diabetes. Her creatinine has remained stable following IV contrast. Last c reatinine on 05/04 was 0.7. Other history includes hypertension. Her blood pressure is currently st able in the 130s over 70s. DISCHARGE MEDICATIONS: Include ciprofloxacin 500 mg p.o. b.i.d. x7 days, Flagyl 500 mg p.o. q.6 hour s x7 days, acetaminophen 650 mg p.o. q.4 hours p.r.n. pain, metoprolol succinate 25 mg p.o. q.h.s., L ipitor 40 mg p.o. q.h.s., metformin 1000 mg p.o. b.i.d. with meals, ondansetron 4 mg p.o. b.i.d. p.r. n., Wellbutrin 150 mg p.o. daily, lorazepam 0.5 mg p.o. q.h.s. p.r.n., magnesium oxide 400 mg p.o. q. h.s., multivitamin 1 tab p.o. daily, vitamin D3 2000 units p.o. daily, omega-3 fatty acids 2000 mg p. o. daily, losartan potassium 100 mg p.o. q.h.s., aspirin 81 mg p.o. q.h.s. As mentioned above, the patient will be seen in the office as followup later this week. /[id number]/MODL
== END 2018-05-05 12:43 | disposition home or self-care (01) | DRG 392 ==
LOC: F1N 05-03 00:17 → OBSVTOIN 05-04 12:43
PROVIDERS: ADMIT Internal Medicine; ATTEND Internal Medicine
DX: K57.92 Diverticulitis of intestine, part unspecified, without perforation or abscess without bleeding (principal); E11.9 Type 2 diabetes mellitus without complications; F41.8 Other specified anxiety disorders; I48.0 Paroxysmal atrial fibrillation; I25.10 Atherosclerotic heart disease of native coronary artery without angina pectoris; E07.9 Disorder of thyroid, unspecified; E78.5 Hyperlipidemia, unspecified; I10 Essential (primary) hypertension; Z85.820 Personal history of malignant melanoma of skin
CPT/HCPCS: 96365; G0378; J0744; J1170; J2550; Q9967

== ENCOUNTER 2018-06-20 05:46 | Inpatient (IN) | payer OTHER ==
[2018-06-20] MEDS ORDERED: LR 1,000 ML IV ONE (06:02)
--- NOTE | 2018-06-20 07:01 | PDHPUP ---
History & Physical Update H&P update statement: This history and physical update is based on an assessment of the patient which was completed after admission or registration (within 24 hours), but prior to the surgery/procedure. H&P update: H&P reviewed & patient examined, no change in patient's condition since H&P completed
[2018-06-20] MEDS ORDERED: PROPOFOL 200 MG/20 ML VIAL ONE (07:07)
[2018-06-20] MEDS ORDERED: fentaNYL 250 MCG/5 ML INJ ONE (07:07)
[2018-06-20] MEDS ORDERED: MIDAZOLAM 2 MG/2 ML VIAL ONE (07:07)
[2018-06-20] MEDS ORDERED: LIDOCAINE 2% 5 ML SDV ONE (07:11)
[2018-06-20] MEDS ORDERED: ROCURONIUM 100 MG/10 ML VIAL ONE (07:12)
[2018-06-20] MEDS ORDERED: SUGAMMADEX SODIUM 200 MG/2 ML VIAL IVP ONE (07:13)
[2018-06-20] MEDS ORDERED: MIDAZOLAM 2 MG/2 ML VIAL IVP ONE (07:13)
[2018-06-20] MEDS ORDERED: DEXAMETHASONE 4 MG/ML VIAL ONE (07:13)
[2018-06-20] MEDS ORDERED: KETOROLAC 30 MG/1 ML SDV ONE (07:13)
[2018-06-20] MEDS ORDERED: ONDANSETRON 4 MG/2 ML VIAL ONE (07:13)
[2018-06-20] MEDS ORDERED: cefOXitin SODIUM 2 GM in NS 100 ML IV ONE (07:15)
--- NOTE | 2018-06-20 07:15 | PDANEPAE ---
ANE History of Present Illness diverticulitis for robotic sigmoid colectomy ANE Past Medical History - Cardiovascular History Hx Hypertension: Yes Hx Arrhythmias: Yes Hx Chest Pain: No Hx Coronary Artery / Peripheral Vascular Disease: No Hx CHF / Valvular Disease: No Hx Palpitations: No Cardiovascular History Comment: ONE TIME A-FIB 2004 NO CARDIOLOGY FU FOR PAST 3 YEARS - Pulmonary History Hx COPD: No Hx Asthma/Reactive Airway Disease: Yes Hx Recent Upper Respiratory Infection: No Hx Oxygen in Use at Home: No Hx Sleep Apnea: No Sleep Apnea Screening Result - Last Documented: Negative Pulmonary History Comment: ASTHMA TRIGGERS ENVIRONMENTAL. NO REGULAR USE OF INHALER - Neurologic History Hx Cerebrovascular Accident: No Hx Seizures: Yes Hx Dementia: No Neurologic History Comment: TIA-2010. SEIZURE RELATED TO HITTING HEAD GREATER THAN 30 YRS AGO - Endocrine History Hx Diabetes: Yes Obesity: no Endocrine History Comment: NIDDM - Renal History Hx Renal Disorders: No - Liver History Hx Hepatic Disorders: No - Neurological & Psychiatric Hx Hx Neurological and Psychiatric Disorders: Yes Neurological / Psychiatric History Comment: DEPRESSION/ANXIETY - Cancer History Hx Cancer: Yes Cancer History Comment: MELANOMA ABD - Congenital Disorder History Hx Congenital Disorders: No - GI History Hx Gastrointestinal Disorders: Yes Gastrointestinal History Comment: DIVERTICULOSIS. DIVERTICULITIS. HX OF POLYPS - Other Health History Other Health History: PREV - Chronic Pain History Chronic Pain: No - Surgical History Prior Surgeries: RT THUMB TRIGGER FINGER RELEASE 2014. LT BREAST BX. PILONIDAL CYST. RT KNEE SCOPE. CHRISTINE CARPAL TUNNEL ANE Review of Systems Review of systems is: negative Review of Systems: - Exercise capacity METS (RN): 4 METS ANE Patient History - Allergies Allergies/Adverse Reactions: fluoxetine Allergy (Verified 06/17/18 12:48) ORAL SWELLING metaxalone [From Skelaxin] Allergy (Verified 05/03/18 10:56) niacin Allergy (Verified 06/17/18 12:48) LEG CRAMPS - Home Medications Home medications: home medication list seen and reviewed Home Medications: Metoprolol Succinate [Toprol Xl] 25 mg PO HS 08/17/10 [Last Taken 06/19/18] Atorvastatin Calcium [Lipitor] 40 mg PO HS 11/18/17 [Last Taken 06/19/18] metFORMIN HCL [Glucophage 500 mg (*)] 1,000 mg PO BIDMEAL 11/18/17 [Last Taken 06/19/18] Aspirin [Aspirin 81mg (*)] 81 mg PO HS 05/03/18 [Last Taken 06/17/18] Cholecalciferol Vit D3 [Vitamin D3 2000 units tab (OTC)] 2,000 units PO DAILY [Last Taken 06/17/18] Herbals/Supplements -Info Only 1 ea PO DAILY 05/03/18 [Last Taken 06/17/18] LORazepam [Ativan (*)] 0.5 mg PO HS PRN 05/03/18 [Last Taken 2 Months Ago ~04/19] Losartan Potassium [Cozaar 50 mg (*)] 100 mg PO HS 05/03/18 [Last Taken 06/19/18 ] Magnesium Oxide [Magnesium Oxide 400 mg (*)] 400 mg PO HS 05/03/18 [Last Taken 06/17/18] [place]-3 Fatty Acids [Fish Oil 1000 mg (*)] 2,000 mg PO DAILY 05/03/18 [Last Taken 06/17/18] Ondansetron Odt [Zofran Odt 4 mg (*)] 4 mg PO BID PRN 05/03/18 [Last Taken 06/19 23:59] buPROPion XL [Wellbutrin 150mg XL] 150 mg PO DAILY 05/03/18 [Last Taken 04:00] - NPO status NPO Since - Liquids (Date): 06/20/18 NPO Since - Liquids (Time): 04:00 NPO Since - Solids (Date): 06/19/18 NPO Since - Solids (Time): 12:00 - Anes Hx Anes Hx: no prior problems - Smoking Hx Smoking Status: Never smoked - Family Anes Hx Family Hx Anesthesia Complications: NEG ANE Labs/Vital Signs - Vital Signs Blood Pressure: 105/70 Heart Rate: 72 Respiratory Rate: 14 O2 Sat (%): 94 Height: 162.56 cm Weight: 74.843 kg ANE Physical Exam - Airway Neck exam: FROM Mallampati Score: Class 2 Mouth exam: normal dental/mouth exam - Pulmonary Pulmonary: no respiratory distress - Cardiovascular Cardiovascular: regular rate and rhythym - ASA Status ASA Status: III ANE Anesthesia Plan Anesthesia Plan: general endotracheal anesthesia Regional Anesthesia: TAP block
[2018-06-20] MEDS ORDERED: BUPIVACAINE/EPI 0.5% 30 ML SDV ONE (07:19)
[2018-06-20] MEDS ORDERED: PHENYLEPHRINE HCL 100 MCG/ML SYR ONE (07:38)
--- NOTE | 2018-06-20 07:50 | POSTANESTH ---
Post Anesthetic Evaluation Cardiovascular Status: Normal, Stable Respiratory Status: Normal, Stable Level of Consciousness/Mental Status: Can Participate in Eval, Alert and Oriented Pain Control: Adequate, Prn Tx Ordered Nausea/Vomiting Control: Adequate, Prn Tx Ordered Complications Possibly Related to Anesthesia: None Noted
[2018-06-20] MEDS ORDERED: ePHEDrine SULFATE 25 MG/5 ML SYR ONE (07:51)
[2018-06-20] MEDS ORDERED: PROMETHAZINE HCL 25 MG/ML INJ IVP PRN (08:31)
[2018-06-20] MEDS ORDERED: METOCLOPRAMIDE 10 MG/2 ML VIAL IVP PRN (08:31)
[2018-06-20] MEDS ORDERED: ONDANSETRON 4 MG/2 ML VIAL IVP PRN (08:31)
[2018-06-20] MEDS ORDERED: NALOXONE HCL 0.4 MG/ML INJ IVP PRN (08:31)
[2018-06-20] MEDS ORDERED: HYDROCODONE/APAP 5/325 TAB PO PRN (08:31)
[2018-06-20] MEDS ORDERED: LR 500 ML IV PRN (08:31)
[2018-06-20] MEDS ORDERED: oxyCODONE IR 5 MG TAB PO PRN (08:31)
[2018-06-20] MEDS ORDERED: ALBUTEROL 3 ML DEYVIAL IH PRN (08:31)
[2018-06-20] MEDS ORDERED: ACETAMINOPHEN 500 MG TAB PO PRN (08:31)
[2018-06-20] MEDS ORDERED: ROPIVACAINE HCL 150 MG/30 ML INJ ONE (09:15)
--- NOTE | 2018-06-20 11:04 | POSTOPPROG ---
Post Op Note Date of Operation: 06/20/18 Surgeon: Na Mathur Street Light Repairer: roberto carlos Anesthesiologist: colin Anesthesia: GET(General Endotracheal) Pre-op Diagnosis: diverticulitis Post-op Diagnosis: same Indication: 67yo F with recurrent diverticulitis Procedure: davinci sigmoidectomy with transanal excision Findings: diverticula to prox descending colon Inf/Abcess present in the surg proc area at time of surgery?: No EBL: Minimal Complications: none immediately postop Drains: Khalif Edwards Specimen(s): sigmoid colon anastomotic rings
[2018-06-20] MEDS ORDERED: ACETAMINOPHEN 325 MG TAB PO PRN (11:07)
[2018-06-20] MEDS ORDERED: diphenhydrAMINE 25 MG CAP PO PRN (11:07)
[2018-06-20] MEDS ORDERED: LORazepam 0.5 MG TAB PO PRN (11:08)
[2018-06-20] MEDS ORDERED: fentaNYL 100 MCG/2 ML INJ ONE (11:27)
[2018-06-20] MEDS: fentaNYL 100 MCG/2 ML INJ IVP PRN ×2 (11:30→11:40)
--- NOTE | 2018-06-20 11:51 | CPEKG ---
Test Reason : OPEN Blood Pressure : / mmHG Vent. Rate : 071 BPM Atrial Rate : 070 BPM P-R Int : 163 ms QRS Dur : 087 ms QT Int : 394 ms P-R-T Axes : 013 011 013 degrees QTc Int : 429 ms Sinus rhythm Confirmed by Demetrius Marshall ([id number]) on 06/20/2018 11:50:32 AM Referred By: Na Mathur Confirmed By:Demetrius Marshall
[2018-06-20] MEDS ORDERED: HYDROmorphONE/DILAUDID 2 MG/ML INJ ONE (12:31)
[2018-06-20] MEDS: HYDROmorphONE/DILAUDID 2 MG/ML INJ IVP PRN ×2 (12:37→13:11)
[2018-06-20] MEDS: NS 1,000 ML IV SCH ×2 (15:12→23:20)
--- NOTE | 2018-06-20 15:43 | PDMN ---
Medical Necessity Medical necessity: [facility] IP only surgery; cpt 81157 Colectomy
[2018-06-20] MEDS: ONDANSETRON DISINTEGRATING 4 MG TAB PO PRN (17:06)
[2018-06-20] MEDS: HYDROCODONE/APAP 5/325 TAB PO PRN ×2 (17:50→23:23)
[2018-06-20] MEDS ORDERED: metFORMIN HCL 500 MG TAB PO SCH (18:00)
[2018-06-20] MEDS: INSULIN LISPRO 100 UNIT/ML SC SCH (18:49)
[2018-06-20] MEDS: ASPIRIN 81 MG CHEWABLE TAB PO SCH (20:39)
[2018-06-20] MEDS: ATORVASTATIN CALCIUM 40 MG TAB PO SCH (20:39)
[2018-06-20] MEDS ORDERED: METOPROLOL SUCCINATE XR 25 MG TAB PO SCH (21:00)
[2018-06-20] MEDS ORDERED: LOSARTAN POTASSIUM 50 MG TAB PO SCH (21:00)
[2018-06-21] MEDS: HYDROCODONE/APAP 5/325 TAB PO PRN ×6 (04:43→21:43)
[2018-06-21 05:49] LABS: PLATELET COUNT 205 10^3/uL (150-400)
[2018-06-21] MEDS: INSULIN LISPRO 100 UNIT/ML SC SCH (08:06)
[2018-06-21] MEDS: buPROPion XL 150 MG TAB PO SCH (08:46)
[2018-06-21] MEDS: NS 1,000 ML IV SCH ×2 (08:57→20:16)
--- NOTE | 2018-06-21 11:41 | GOP ---
[f rep st] OPERATIVE REPORT DATE OF OPERATION: 06/20/2018 SURGEON: Na Mathur MD MANAGER UTILIZATION: Mercy Pradhan PA-C. ANESTHESIA: Dr. Juan Diaz/general. PREOPERATIVE DIAGNOSIS: Recurrent diverticulitis. POSTOPERATIVE DIAGNOSIS: Recurrent diverticulitis. PROCEDURE PERFORMED: Minimally invasive robotic sigmoid colectomy. FINDINGS: Inflamed sigmoid colon with multiple diverticula. She also had diverticula scattered thro ughout her descending colon. Colon preparation fair. SPECIMENS: Sigmoid colon. ESTIMATED BLOOD LOSS: 50 mL. INDICATIONS: The patient is a 67-year-old woman who has had recurrent episodes of diverticulitis. S he presents for sigmoid colectomy. DESCRIPTION OF PROCEDURE: Patient was brought into the operating room, placed supine on the table, a nd general anesthesia was administered. She was placed in the lithotomy position. A Brenner catheter was placed. Her abdomen was prepped and draped in the usual sterile fashion. Her perineum was also prepped and draped in the usual sterile fashion. I made my first incision superior and to the right of the umbilicus. I elevated her abdomen and inserted the Veress needle. It passed the hang drop te st. Her abdomen insufflated easily to a pressure of 15 mmHg. I placed an 8 mm trocar with a camera at this site. There were no injuries from Veress needle placement. Under direct vision, I placed an additional 8 mm trocar at the left costal margin, an 8 mm trocar which I upsized to a 12 mm at the r ight iliac crest, and a second trocar in the midclavicular line, all of these in a straight line. I explored her abdomen. She had multiple diverticula. She was placed in the Trendelenburg position. The robot was brought in and docked. Instruments were introduced under direct vision. I placed a Ti p-Up in arm 1, Cadiere in arm 2, and the harmonic in arm 4. I moved to the console. The sigmoid was grasped with the Tip-Up and tented the DEMARCO. Dissection occurred at the midpoint of the DEMARCO. The pe ritoneum was incised, and the DEMARCO was transected with the harmonic. I then incised along the white l ine of [place], paying careful attention not to injure the left ureter. I continued my dissection in t he avascular plane and I continued my dissection of the colon down into the pelvis to the point where the tenia splayed at the level of the peritoneal reflection. Attention was paid to find a satisfact ory point of transection proximally. She did have scattered diverticula. However, there were none t hat appeared to be inflamed or thin walled. I carried my dissection up to the splenic flexure, but d id not have to come all the way around the splenic flexure so that there was plenty of colon to reach into her pelvis. I introduced the stapler and I divided the rectum with a BRANDIE 45 blue load. I also transected the colon proximally. I opened up the rectum and there was liquid stool that was exposed . Suction irrigation was performed. I then was able to remove the colon transanally. The anvil was placed back up through the rectum into the abdominal cavity. I then restapled the rectum. Next, I made a colotomy in the proximal colon. I performed a pursestring suture with 2-0 Prolene. I placed the anvil and secured this. It felt a little loose and so I did a second pursestring suture and the anvil was sitting correctly. The EEA stapler was introduced in the anus and guided to the level of [facility] distal staple line. The spike of the EEA was deployed and the anvil was attached to the spike. [facility] EEA device was closed and fired to perform a stapled end-to-end anastomosis. The donuts were comp lete. An air leak test was performed by gently insufflating air into the rectum while the anastomosi s was bathed under water. I used the Tip-Up on the proximal colon to prevent its distention. There were no leaks. Suction irrigation was performed in the pelvis due to the spillage of stool. A KELSEY dr tolbert was placed. The robot was undocked, trocars removed under direct vision. The fascia at the 12 m m trocar site was closed with 0 Vicryl. KELSEY drain sewn in with 3-0 nylon. Skin closed with 4-0 Monoc ryl. Dermabond applied. She was awakened in the operating room, extubated, transferred to PACU in s table condition. /[id number]/MODL
--- NOTE | 2018-06-21 12:14 | SOAPPROG ---
SOAP Progress Note Assessment/Plan: Assessment/Plan: 67 year old woman s/p sigmoid colectomy 06/20/2018 pain control hold metformin (glucose 89 this am) IV Ceftriaxone and Flagyl today due to gross spillage of stool intraop (bowel prep fair with residual liquid stool in rectum) clears request OT/PT consults D/C avelar this afternoon if ambulating well S: Painful, no nausea. O: pt appears quite painful and shaky Lungs CTA HR regular abdomen slightly distended, tender, hypoactive BS. Incisions cdi KELSEY drain-serosanguinous fluid 06/21/18 12:16 06/21/18 12:20 06/21/18 12:22 06/21/18 13:46 Objective: Vital Signs Temp Pulse Resp BP Pulse Ox 37.2 C 81 16 110/67 99 06/21/18 07:59 06/21/18 07:59 06/21/18 07:59 06/21/18 07:59 06/21/18 07:59 Laboratory Results 06/21/18 05:14 06/21/18 05:14 06/20/18 06/21/18 06/22/18 05:59 05:59 05:59 Intake Total 2200 Output Total 770 Balance 1430 ICD10 Worksheet Patient Problems: Problems Problem Status Onset Diverticulitis large intestine Acute
--- NOTE | 2018-06-21 12:18 | ASMTCMCOM ---
CM Note CM Note Notes: Spoke with RN, pt admitted for scheduled sx. Anticipate will dc home w/support of when medically stable, CM available for any changes. DC Plan: Independent Date Signed: 06/21/2018 12:17 PM Electronically Signed By:Shannon Tirado RN
[2018-06-21] MEDS: ONDANSETRON DISINTEGRATING 4 MG TAB PO PRN (16:34)
[2018-06-21] MEDS: ONDANSETRON 4 MG/2 ML VIAL IVP PRN (20:17)
[2018-06-21] MEDS: HYDROmorphONE/DILAUDID 1 MG/ML INJ IVP PRN (20:17)
[2018-06-21] MEDS: ASPIRIN 81 MG CHEWABLE TAB PO SCH (21:43)
[2018-06-21] MEDS: ATORVASTATIN CALCIUM 40 MG TAB PO SCH (21:43)
[2018-06-22] MEDS: HYDROCODONE/APAP 5/325 TAB PO PRN ×4 (01:39→17:45)
[2018-06-22] MEDS: NS 1,000 ML IV SCH ×2 (05:13→17:15)
[2018-06-22 05:42] LABS: PLATELET COUNT 193 10^3/uL (150-400)
[2018-06-22] MEDS: buPROPion XL 150 MG TAB PO SCH (09:18)
[2018-06-22] MEDS: ENOXAPARIN 40 MG/0.4 ML SYR SC SCH (09:18)
[2018-06-22] MEDS: ONDANSETRON DISINTEGRATING 4 MG TAB PO PRN (10:04)
[2018-06-22] MEDS: KETOROLAC 15 MG/1 ML SDV IVP PRN ×2 (11:04→17:10)
[2018-06-22] MEDS: PROMETHAZINE HCL 25 MG/ML INJ IVP PRN (11:04)
--- NOTE | 2018-06-22 11:16 | SOAPPROG ---
SOAP Progress Note Assessment/Plan: Assessment/Plan: 67 year old woman s/p sigmoid colectomy 06/20/2018 pain control Continue IV abx-febrile overnight, WBC increased (9.7--->11) add phenergan and toradol clears request OT/PT consults S: Painful in lower abdomen and nauseous. Passing flatus. O: pt appears quite painful, alert Lungs CTA HR regular abdomen slightly distended, tender, hypoactive BS. Incisions cdi KELSEY drain-serosanguinous fluid 06/21/18 12:16 06/21/18 12:20 06/21/18 12:22 06/21/18 13:46 06/22/18 11:12 06/22/18 11:17 Objective: Vital Signs Temp Pulse Resp BP Pulse Ox 37.2 C 85 12 125/75 H 96 06/22/18 08:00 06/22/18 08:00 06/22/18 08:00 06/22/18 08:00 06/22/18 08:00 Laboratory Results 06/22/18 05:17 06/21/18 05:14 06/21/18 06/22/18 06/23/18 05:59 05:59 05:59 Intake Total 2200 2070 178 Output Total 770 3520 Balance 1430 -1450 178 ICD10 Worksheet Patient Problems: Problems Problem Status Onset Diverticulitis large intestine Acute
[2018-06-22] MEDS: ASPIRIN 81 MG CHEWABLE TAB PO SCH (21:01)
[2018-06-22] MEDS: ATORVASTATIN CALCIUM 40 MG TAB PO SCH (21:01)
[2018-06-22] MEDS: ONDANSETRON 4 MG/2 ML VIAL IVP PRN (22:50)
[2018-06-22] MEDS: HYDROmorphONE/DILAUDID 1 MG/ML INJ IVP PRN (22:51)
[2018-06-23] MEDS: PROMETHAZINE HCL 25 MG/ML INJ IVP PRN ×2 (01:23→18:43)
[2018-06-23] MEDS: KETOROLAC 15 MG/1 ML SDV IVP PRN ×3 (01:29→20:16)
[2018-06-23] MEDS: NS 1,000 ML IV SCH ×2 (03:53→15:08)
[2018-06-23 06:08] LABS: PLATELET COUNT 184 10^3/uL (150-400)
--- NOTE | 2018-06-23 08:17 | SOAPPROG ---
SOAP Progress Note Assessment/Plan: Assessment/Plan: 67yo F POD#3 s/p davinci sigmoid colectomy with transanal excision for diverticulitis Weepy and depressed with flagyl - this has happened 3x in the past she reports. Change abx to invanz Nausea - better controlled with Ativan. Abd xray due to persistent nausea and abdominal pain this morning + flatus and bowel movement Leukocytosis - improved today. Afebrile >24 hr. recheck labs in am Clear liquids Pain controlled with IV pain medication, transition to oral Hypertension - hold home BP meds Diabetes - hold home metformin. Continue blood sugar checks Continue Brenner until more ambulatory, likely out tomorrow PT/OT Dispo: continue inpt until return of bowel function and pain controlled S: weepy and nausea. Pain has been controlled, but reports that is worse this morning. bm last night O: tearful CTAB RRR Min distended, tender throughout, + BS throughout. Incisions cdi KELSEY drain-serosanguinous fluid. no purulence Brenner clear yellow urine 06/23/18 08:53 06/24/18 13:14 Objective: Vital Signs Temp Pulse Resp BP Pulse Ox 37.7 C 72 16 94/59 L 92 06/23/18 03:55 06/23/18 04:50 06/23/18 04:50 06/23/18 03:55 06/23/18 04:55 Laboratory Results 06/23/18 05:12 06/21/18 05:14 06/22/18 06/23/18 06/24/18 05:59 05:59 05:59 Intake Total 9661 1851 Output Total 2358 1361 Balance -1450 1646 ICD10 Worksheet Patient Problems: Problems Problem Status Onset Diverticulitis large intestine Acute
[2018-06-23] MEDS: D50W 25 GM/50 ML VIAL IVP PRN ×2 (08:23→18:35)
[2018-06-23] MEDS: buPROPion XL 150 MG TAB PO SCH (08:44)
[2018-06-23] MEDS: ENOXAPARIN 40 MG/0.4 ML SYR SC SCH (08:44)
[2018-06-23] MEDS: ERTAPENEM 1 GM in NS 100 ML IV SCH (09:54)
[2018-06-23] MEDS: LORazepam 2 MG/ML INJ IVP PRN ×2 (10:44→22:31)
[2018-06-23] MEDS: ONDANSETRON 4 MG/2 ML VIAL IVP PRN ×2 (12:50→17:46)
[2018-06-23] MEDS: ASPIRIN 81 MG CHEWABLE TAB PO SCH (20:37)
[2018-06-23] MEDS: ATORVASTATIN CALCIUM 40 MG TAB PO SCH (20:38)
[2018-06-24 05:27] LABS: PLATELET COUNT 190 10^3/uL (150-400)
[2018-06-24] MEDS: HYDROCODONE/APAP 5/325 TAB PO PRN ×2 (06:05→10:37)
[2018-06-24] MEDS ORDERED: D5W 1/2 NS W/ 20 KCl/L 1,000 ML IV SCH (09:15)
[2018-06-24] MEDS: buPROPion XL 150 MG TAB PO SCH (09:26)
[2018-06-24] MEDS: ENOXAPARIN 40 MG/0.4 ML SYR SC SCH (09:26)
[2018-06-24] MEDS: ERTAPENEM 1 GM in NS 100 ML IV SCH (09:26)
--- NOTE | 2018-06-24 10:38 | SOAPPROG ---
SOAP Progress Note Assessment/Plan: Assessment/Plan: 67yo F POD#4 s/p davinci sigmoid colectomy with transanal excision for diverticulitis IV antibiotics - invanz Nausea controlled. Pain controlled. + flatus and bowel movement Leukocytosis - within normal range. Low grade fever 38.2 overnight. Advance to regular diet Pain controlled with IV pain medication, transition to oral Hypertension - hold home BP meds Diabetes - hold home metformin until eating. Continue blood sugar checks. Change fluids from NS to D51/2NS+20K Voiding spontaneously s/p avelar removal PT/OT. Incentive spirometry Dispo: home in am S: feeling much better today, emotions have cleared back to normal. nausea improved. pain improved. passing gas and having BMs. O: laying in bed, comfortable, NAD CTAB RRR Softly distended (much softer than yesterday), nontender, + BS throughout. Incisions cdi KELSEY drain-serosanguinous fluid. no purulence 06/24/18 10:38 06/24/18 14:41 Objective: Vital Signs Temp Pulse Resp BP Pulse Ox 37.2 C 55 L 18 129/62 H 95 06/24/18 07:37 06/24/18 07:37 06/24/18 07:37 06/24/18 07:37 06/24/18 07:37 Laboratory Results 06/24/18 05:12 06/24/18 05:12 06/23/18 06/24/18 06/25/18 05:59 05:59 05:59 Intake Total 3007 1270 Output Total 1361 385 Balance 1640 105 ICD10 Worksheet Patient Problems: Problems Problem Status Onset Diverticulitis large intestine Acute
--- NOTE | 2018-06-24 12:19 | ASMTCMCOM ---
CM Note CM Note Notes: Pts case discussed w/ JOSTIN Thompson. Pt is not medically stable to d/c at this time. Therapies have cleared pt to d/c home without any needs. CM available for changes. Plan: Independent Date Signed: 06/24/2018 12:14 PM Electronically Signed By:CRISTOFER Mc
[2018-06-24] MEDS: ONDANSETRON 4 MG/2 ML VIAL IVP PRN (18:25)
[2018-06-24] MEDS: KETOROLAC 15 MG/1 ML SDV IVP PRN (18:25)
[2018-06-24] MEDS: ASPIRIN 81 MG CHEWABLE TAB PO SCH (21:01)
[2018-06-24] MEDS: ATORVASTATIN CALCIUM 40 MG TAB PO SCH (21:01)
[2018-06-25] MEDS: KETOROLAC 15 MG/1 ML SDV IVP PRN ×2 (02:45→09:25)
[2018-06-25] MEDS: ERTAPENEM 1 GM in NS 100 ML IV SCH (09:32)
[2018-06-25] MEDS: buPROPion XL 150 MG TAB PO SCH (09:35)
[2018-06-25] MEDS: ENOXAPARIN 40 MG/0.4 ML SYR SC SCH (09:35)
[2018-06-25 11:29] VITALS: BP 137/70
--- NOTE | 2018-06-25 13:08 | SOAPPROG ---
SOAP Progress Note Assessment/Plan: Assessment/Plan: 67 year old woman s/p sigmoid colectomy 06/20/2018 Tolerating diet - Having BM Will dc home today follow up with PCP tomorrow as we have held metformin and bp meds Remove KELSEY prior to dc S: Feeling depressed O:Moves well around room Lungs CTA HR regular abdomen not distended, BS present. Incisions cdi. KELSEY drain-serous fluid 06/21/18 12:16 06/21/18 12:20 06/21/18 12:22 06/21/18 13:46 06/22/18 11:12 06/22/18 11:17 06/25/18 13:07 Objective: Vital Signs Temp Pulse Resp BP Pulse Ox 36.6 C 74 14 137/70 H 93 06/25/18 11:26 06/25/18 11:26 06/25/18 11:26 06/25/18 11:26 06/25/18 11:26 Laboratory Results 06/24/18 05:12 06/24/18 05:12 06/24/18 06/25/18 06/26/18 05:59 05:59 05:59 Intake Total 1270 Output Total 385 30 100 Balance 885 -30 -100 ICD10 Worksheet Patient Problems: Problems Problem Status Onset Diverticulitis large intestine Acute
--- NOTE | 2018-06-25 17:42 | GDS ---
[f rep st] DISCHARGE SUMMARY REASON FOR HOSPITALIZATION: 67-year-old woman with a previous medical history of recurrent diverticulitis. She was admitted on 06/20/2018, for elective sigmoid colectomy. A DaVinci-assisted sigmoid colectomy with transanal excision was performed on 06/20/2018. PRIMARY DIAGNOSIS: Diverticulitis of sigmoid colon. Other pertinent diagnosis Depression - medication induced Hypertension - hyperglycemia HOSPITAL COURSE: Patient was admitted to the 3rd floor postsurgery after recovery in PACU. She was placed on IV fluids, pain control and antinausea medications. Brenner catheter was in place postsurgical and a KELSEY drain as well. Her metformin and insulin were held as she was initially on complete bowel rest. Blood glucose levels were monitored for the duration of her hospitalization. She was switched to ertapenem IV after becoming emotional and weepy on metronidazole. The patient states she has had this reaction to metronidazole in the past. She continued to improve daily with spontaneous urination after Brenner catheter removed and return of bowel function as diet was progressed from clear to full liquid to regular diet. On day 5, she was afebrile, had no nausea, and pain was controlled with oral medications. She started eating regular food yesterday. Discharged postop day #5 to home. DISCHARGE CONDITION: Ambulates independently, good condition, with low-fiber diet. MEDICATIONS: Emerson 5/325 one to 2 tablets every 4 hours as needed for pain, # 20. DISCHARGE INSTRUCTIONS: Hold blood pressure medications, losartan and metoprolol, and follow up with primary care physician in 1 week to monitor blood pressure and diabetes. Also, hold metformin until primary care appointment in 1 week. Avoid heavy lifting, pushing, or pulling greater than 10 pounds for 2 weeks. May shower. FOLLOWUP: Follow up with Dr. Mathur in office in 2 weeks. Follow up with primary care in 1 week. /[id number]/MODL MTDD
== END 2018-06-25 12:30 | disposition home or self-care (01) | DRG 331 ==
LOC: F3N 05:46 → F3E 14:07
PROVIDERS: ADMIT Surgery; ATTEND Surgery
PROC: 0DTN4ZZ Resection of Sigmoid Colon, Percutaneous Endoscopic Approach (ICD-10-PCS; principal; 2018-06-20 07:15)
PROC: 8E0W4CZ Robotic Assisted Procedure of Trunk Region, Percutaneous Endoscopic Approach (ICD-10-PCS; principal; 2018-06-20 07:15)
DX: K57.32 Diverticulitis of large intestine without perforation or abscess without bleeding (principal); J45.909 Unspecified asthma, uncomplicated; E11.9 Type 2 diabetes mellitus without complications; I10 Essential (primary) hypertension; Z86.73 Personal history of transient ischemic attack (TIA), and cerebral infarction without residual deficits; Z79.84 Long term (current) use of oral hypoglycemic drugs
CPT/HCPCS: 97116-GP; 97161-GP; 97165-GO; J0694; J0696; J1100; J1170; J1335; J1650; J1885; J2060; J2250; J2370; J2405; J2550; J2704; J2795; J3010

== ENCOUNTER → 2018-08-13 | Outpatient (CLI) | payer OTHER | LOC: FIMAGING 12:23 | PROVIDERS: ATTEND Internal Medicine | DX: Z12.31 Encounter for screening mammogram for malignant neoplasm of breast (principal) ==